=== PATIENT | female | born 1950 | race Caucasian/White ===

== ENCOUNTER 2017-01-05 11:04 | Day surgery (SDC) | payer MEDICARE ==
[~2017-01-05 11:04] MED LIST: Buffered Lidocaine 0.9% SYRIN* 5 ML/SYR SYRINGE INTRADERM ONE
[2017-01-05] MEDS ORDERED: Midazolam* 1 MG/ML 2 ML VIAL (2 MG) ONE (11:59)
[2017-01-05 12:35] VITALS: BP 153/87
[2017-01-05] MEDS ORDERED: acetaZOLAMIDE TAB* 250 MG ONE (14:33)
[2017-01-05] MEDS ORDERED: Tropicamide 1% OPTH.SOL* BTL ONE (14:33)
[2017-01-05] MEDS ORDERED: Lidocaine 1% MPF* 2 ML VIAL ONE (14:33)
[2017-01-05] MEDS ORDERED: Cyclopentolate 1% OPTH.SOL* 2 ML BTL ONE (14:33)
[2017-01-05] MEDS ORDERED: Phenylephrine 2.5% OPTH.SOL* 2 ML BTL ONE (14:33)
[2017-01-05] MEDS ORDERED: Flurbiprofen 0.03% OPTH.SOL* 2.5 ML BTL ONE (14:33)
[2017-01-05] MEDS ORDERED: Neomycin/Polymy/Dex OPHTH.OIN* 3.5 GM ONE (14:33)
[2017-01-05] MEDS ORDERED: Tetracaine 0.5% OPTH.SOL 4 ML* 1 DROP BTL ONE (14:33)
[2017-01-05] MEDS ORDERED: Povidone Iodine 5% OPTH* 30 ML BTL ONE (14:33)
[2017-01-05] MEDS ORDERED: Buffered Lidocaine 0.9% SYRIN* 5 ML/SYR SYRINGE ONE (14:33)
--- NOTE | 2017-01-06 14:09 | OP ---
DATE OF OPERATION: 01/05/17 - [facility] DATE OF : 50 SURGEON: Jose Mojica MD ANESTHESIOLOGIST: Raj Don DO ANESTHESIA: Monitored anesthesia care. PRE-OP DIAGNOSIS: Cataract, right eye. POST-OP DIAGNOSIS: Cataract, right eye. OPERATIVE PROCEDURE: Cataract surgery of the right eye. IMPLANTS: SN60WF 17.5 diopter lens to the right eye. COMPLICATIONS: None. DESCRIPTION OF PROCEDURE: The patient was given phenylephrine 2.5% and cyclopentolate 1% eye drops to the operative eye in the preoperative area. The patient was brought to the operating room where a time-out was taken to identify the correct patient, site, and side of surgery. The patient's right eye was prepped and draped in the usual sterile fashion with 5% Betadine. A second time- out was taken to verify the correct patient, site, and side of surgery, and correct lens selection. A lid speculum was placed to the right eye. A 1-mm paracentesis blade was used to make a clear corneal incision in the superotemporal position. Preservative-free 1% lidocaine was injected into the anterior chamber. DisCoVisc was then injected into the anterior chamber. A 2.75-mm keratome blade was used to make a triplanar incision at the inferotemporal position. A cystotome initiated a capsulorrhexis which was completed with Utrata forceps in a continuous and curvilinear manner. Hydrodissection of the lens was performed with BSS on a cannula. The lens could be spun in the capsular bag. The phacoemulsification handpiece was used with a aljqax-qkn-hsuwyxw technique to remove the nucleus in its entirety with 20.12 CDE. The I/A handpiece then removed the residual cortical lens material. DisCoVisc was injected to inflate the capsular bag. The planned SN60WF 17.5 diopter lens was injected in the capsular bag. The residual DisCoVisc was removed from the eye with the I/A handpiece. The corneal incisions were hydrated and no leaks occurred at physiologic pressure around 20 mmHg per palpation. The lid speculum was removed and drapes removed. Maxitrol ointment was placed to the surface of the operative eye. An adhesive patch and shield was placed on the operative eye. The patient was taken to the postoperative area in stable condition. [id number]/[facility] #: [id number] MTDNorah
== END 2017-01-05 12:36 | disposition home or self-care (01) ==
LOC: OREAST 11:04
PROVIDERS: ATTEND Student in an Organized Health Care Education/Training Program
DX: H25.11 Age-related nuclear cataract, right eye (principal); E11.9 Type 2 diabetes mellitus without complications; Z79.84 Long term (current) use of oral hypoglycemic drugs; E78.5 Hyperlipidemia, unspecified
CPT/HCPCS: A9270-GY; J2250; V2632

== ENCOUNTER 2017-01-12 11:05 | Day surgery (SDC) | payer MEDICARE ==
[~2017-01-12 11:05] MED LIST changes: +Acetaminophen TAB* 325 MG PO PRN
[2017-01-12] MEDS ORDERED: acetaZOLAMIDE TAB* 250 MG ONE (12:34)
[2017-01-12] MEDS ORDERED: Cyclopentolate 1% OPTH.SOL* 2 ML BTL ONE (12:34)
[2017-01-12] MEDS ORDERED: Tetracaine 0.5% OPTH.SOL 4 ML* 1 DROP BTL ONE (12:35)
[2017-01-12] MEDS ORDERED: Buffered Lidocaine 0.9% SYRIN* 5 ML/SYR SYRINGE ONE (12:35)
[2017-01-12] MEDS ORDERED: Neomycin/Polymy/Dex OPHTH.OIN* 3.5 GM ONE (12:35)
[2017-01-12] MEDS ORDERED: Lidocaine 1% MPF* 2 ML VIAL ONE (12:35)
[2017-01-12] MEDS ORDERED: Phenylephrine 2.5% OPTH.SOL* 2 ML BTL ONE (12:35)
[2017-01-12] MEDS ORDERED: Flurbiprofen 0.03% OPTH.SOL* 2.5 ML BTL ONE (12:35)
[2017-01-12] MEDS ORDERED: Povidone Iodine 5% OPTH* 30 ML BTL ONE (12:35)
[2017-01-12] MEDS ORDERED: Tropicamide 1% OPTH.SOL* BTL ONE (12:35)
[2017-01-12] MEDS ORDERED: Midazolam* 1 MG/ML 2 ML VIAL (2 MG) ONE (12:41)
[2017-01-12 13:19] VITALS: BP 156/76
--- NOTE | 2017-01-12 23:16 | OP ---
DATE OF OPERATION: 01/12/17 - [facility] DATE OF : 50 SURGEON: Jose Mojica MD ANESTHESIOLOGIST: Arjun Priest MD ANESTHESIA: Monitored anesthesia care. PRE-OP DIAGNOSIS: Cataract, left eye. POST-OP DIAGNOSIS: Cataract, left eye. OPERATIVE PROCEDURE: Cataract surgery, left eye. IMPLANTS: SN60WF 16.0 diopter lens to the left eye. COMPLICATIONS: None. DESCRIPTION OF PROCEDURE: The patient was given phenylephrine 2.5% and cyclopentolate 1% eye drops to the operative eye in the preoperative area. The patient was brought to the operating room where a time-out was taken to identify the correct patient, site and side of surgery. The patient's left eye was prepped and draped in the usual sterile fashion with 5% Betadine. A second time-out was taken to verify the correct patient, site, and side of surgery, and correct lens selection. A lid speculum was placed to the left eye. A 1-mm paracentesis blade was used to make a clear corneal incision in the inferotemporal position. Preservative-free 1% lidocaine was injected into the anterior chamber. DisCoVisc was then injected into the anterior chamber. A 2.75-mm keratome blade was used to make a triplanar incision at the superotemporal position. A cystotome initiated a capsulorrhexis, which was completed with Utrata forceps in a continuous and curvilinear manner. Hydrodissection of the lens was performed with BSS on a cannula. The lens could be spun in the capsular bag. The phacoemulsification handpiece was used with a [id number]-dwpxfvb technique to remove the nucleus in its entirety with 13.41 CDE. The I/A handpiece then removed the residual cortical lens material. DisCoVisc was injected to inflate the capsular bag. The planned SN60WF 16.0 diopter lens was injected in the capsular bag. The residual DisCoVisc was removed from the eye with the I/A handpiece. The corneal incisions were hydrated and no leaks occurred at physiologic pressure around 20 mmHg per palpation. The lid speculum was removed and drapes removed. Maxitrol ointment was placed on the surface of the operative eye. An adhesive patch and shield was placed on the operative eye. The patient was taken to the postoperative area in stable condition. [id number]/[facility] #: [id number] EDEN
== END 2017-01-12 13:26 | disposition home or self-care (01) ==
LOC: OREAST 11:05
PROVIDERS: ATTEND Student in an Organized Health Care Education/Training Program
DX: H25.12 Age-related nuclear cataract, left eye (principal); E11.9 Type 2 diabetes mellitus without complications; Z79.84 Long term (current) use of oral hypoglycemic drugs
CPT/HCPCS: A9270-GY; J2250; V2632

== ENCOUNTER 2023-05-19 06:30 | Inpatient (IN) ==
[~2023-05-19 06:30] MED LIST changes: -Acetaminophen TAB* 325 MG PO PRN; -Buffered Lidocaine 0.9% SYRIN* 5 ML/SYR SYRINGE INTRADERM ONE; +HYDROmorphone 1 MG/1 ML SYRINGE IV PRN; +Naloxone 0.4 mg VIAL 0.4 mg/ml 1 ml VIAL IV PRN; +Ondansetron 4 mg VIAL 2 MG/ML 2 ml VIAL IV PRN; +fentaNYL 100 mcg/2 ml 50 MCG/ML VIAL IV PRN
[2023-05-19] MEDS ORDERED: Propofol 10 MG/ML 20 ML BTL ONE (06:54)
[2023-05-19] MEDS ORDERED: Phenylephrine IV 10 MG/ML 1 ml VIAL ONE (06:54)
[2023-05-19] MEDS ORDERED: fentaNYL 100 mcg/2 ml 50 MCG/ML VIAL ONE (06:54)
[2023-05-19] MEDS ORDERED: Dexamethasone IV 4 MG/ML VIAL 1 ml VIAL ONE ×2 (06:54→08:19)
[2023-05-19] MEDS ORDERED: Midazolam 2 mg/2 ml VIAL 1 mg/ml 2 ml VIAL (2 mg) ONE (06:54)
[2023-05-19] MEDS ORDERED: Lidocaine 2% PF 5 ML VIAL ONE (06:54)
[2023-05-19] MEDS ORDERED: Ondansetron 4 mg VIAL 2 MG/ML 2 ml VIAL ONE ×3 (06:54→12:47)
[2023-05-19] MEDS ORDERED: ceFAZolin 2 GM in NS PREMIX 2 GM/100 ML BAG IVPB ONE (07:42)
[2023-05-19] MEDS ORDERED: ROPIVACAINE 5 MG/ML 30 ML BTL (0.5%) ONE ×2 (08:17)
[2023-05-19] MEDS ORDERED: Lidocaine 1% MPF 5 ML VIAL ONE (08:17)
[2023-05-19 08:39] LABS: Rapid COVID-19 Molecular Undetected (Undetected)
[2023-05-19] MEDS ORDERED: Rocuronium 50 mg VIAL 10 mg/ml 5 ml VIAL (50 mg) ONE (09:16)
[2023-05-19] MEDS ORDERED: Bupivacaine-MPF SPINAL 7.5 MG/ML - 2ML AMP ONE (09:31)
[2023-05-19] MEDS ORDERED: Buffered Lidocaine 1% SYRIN 1 ml INTRADERM ONE (09:56)
[2023-05-19] MEDS ORDERED: Metoprolol Tartrate 5 mg VIAL 5 ml VIAL (1 mg/ml) ONE (10:00)
[2023-05-19] MEDS ORDERED: Lactated Ringers 1000 ml BAG 1,000 ML IV SCH (10:00)
[2023-05-19] MEDS ORDERED: Lactulose 30 ml UDC PO PRN (10:39)
[2023-05-19] MEDS ORDERED: Ondansetron ODT 4 mg TAB 4 MG TAB PO PRN (10:39)
[2023-05-19] MEDS ORDERED: Magnesium Hydroxide LIQ 30 ML UDC PO PRN (10:39)
[2023-05-19] MEDS ORDERED: Ondansetron 4 mg VIAL 2 MG/ML 2 ml VIAL IV PRN (10:39)
[2023-05-19] MEDS ORDERED: Morphine 2 MG/ML SYRINGE IV PRN (10:39)
[2023-05-19] MEDS: Lactated Ringers 1000 ml BAG 1,000 ML IV SCH (13:57)
[2023-05-19] MEDS ORDERED: Scopolamine 1 mg/72hr PATCH TRANSDERM SCH (14:00)
[2023-05-19] MEDS ORDERED: Dextrose 50% Syringe 50 ml 25 GM/50 ML SYRINGE IV PUSH PRN (14:26)
[2023-05-19] MEDS ORDERED: HYDROcodone/ACETAMIN 5/325 mg TAB PO PRN (17:34)
[2023-05-19] MEDS: ceFAZolin 1 GM ADVAN 1 GM in NS 0.9% 50 ML 50 ML IVPB SCH (17:42)
[2023-05-19] MEDS: HYDROcodone/ACETAMIN 5/325 mg TAB PO PRN (17:54)
[2023-05-19] MEDS: Magnesium Hydroxide LIQ 30 ML UDC PO SCH (21:14)
[2023-05-20] MEDS: Lactated Ringers 1000 ml BAG 1,000 ML IV SCH (00:32)
[2023-05-20] MEDS: ceFAZolin 1 GM ADVAN 1 GM in NS 0.9% 50 ML 50 ML IVPB SCH ×2 (00:37→08:18)
[2023-05-20] MEDS: HYDROcodone/ACETAMIN 5/325 mg TAB PO PRN (02:28)
[2023-05-20] MEDS: Magnesium Hydroxide LIQ 30 ML UDC PO SCH (08:18)
[2023-05-20 08:28] LABS: Hemoglobin 10.8 g/dL (11.5-14.3); Mean Platelet Volume 7.4 fL (7.5-11.2); Platelet Count 221 10^3/uL (150-450)
[2023-05-20 08:51] LABS: Calcium 8.6 mg/dL (8.6-10.3); Creatinine, Serum 0.85 mg/dL (0.51-0.95); Potassium 4.6 mmol/L (3.5-5.0); eGFR CKD-EPI 72.7 (>60)
[2023-05-20] MEDS ORDERED: Vitamin THERAPEUTIC TAB PO SCH (09:00)
[2023-05-20 10:23] VITALS: BP 100/56
== END 2023-05-20 16:30 | disposition home or self-care (01) | DRG 470 ==
LOC: AA 06:30 → SSU 10:39
PROVIDERS: ADMIT Orthopaedic Surgery Adult Reconstructive Orthopaedic Surgery; ATTEND Orthopaedic Surgery Adult Reconstructive Orthopaedic Surgery